=== PATIENT | male | born 1950 | race Caucasian/White ===

== ENCOUNTER 2025-06-29 12:00 | Inpatient (IN) | payer MEDICARE ==
[2025-06-29 12:24] VITALS: BMI 26.2
[2025-07-03] MEDS ORDERED: Thrombin 5000 UNITS/5 ML VIAL ONE (06:12)
[2025-07-03] MEDS ORDERED: Bacitracin Zinc Ointment 30 gm TUBE ONE (06:43)
[2025-07-03] MEDS ORDERED: diphenhydrAMINE 50 MG/ML VIAL IVP PRN (06:48)
[2025-07-03] MEDS ORDERED: HYDROcodone/Acetaminophen 10/325 mg Tablet PO PRN (06:48)
[2025-07-03] MEDS ORDERED: Ondansetron PF 4 MG/2 ML Vial IVP PRN (06:48)
[2025-07-03] MEDS ORDERED: Glucagon 1 MG/ML KIT IM PRN (06:50)
[2025-07-03] MEDS ORDERED: Dextrose 50% Abboject 50 ML SYRINGE SLOW IVP PRN (06:50)
[2025-07-03] MEDS ORDERED: PROPOFOL 20 ML ONE (06:55)
[2025-07-03] MEDS ORDERED: Lidocaine 1% PF 5 ML VIAL ONE (06:55)
[2025-07-03] MEDS ORDERED: Ondansetron PF 4 MG/2 ML Vial ONE (06:55)
[2025-07-03] MEDS ORDERED: Rocuronium Bromide 10 MG/ML (10ML VIAL) ONE (06:55)
[2025-07-03] MEDS ORDERED: CEFAZOLIN 2 GM VIAL ONE (06:58)
[2025-07-03] MEDS ORDERED: SUGAMMADEX SODIUM 200 MG/2 ML VIAL ONE (10:26)
[2025-07-03] MEDS ORDERED: fentaNYL PF 100 MCG/2 ML SYRINGE ONE (12:11)
[2025-07-03] MEDS: Losartan 25 MG TAB PO SCH (13:19)
[2025-07-03] MEDS: Pantoprazole 40 MG DR.TAB PO SCH (13:19)
[2025-07-03] MEDS: Acetaminophen/Codeine 30-300mg Tablet PO PRN (15:48)
[2025-07-04] MEDS: HYDROcodone/Acetaminophen 7.5/325 mg Tablet PO PRN (04:43)
[2025-07-04 05:53] LABS: #Basophils 0.04 10x3/uL (0.0-0.2); #Eosinophils Less than 0.03 10x3/uL (0.0-0.7); #Monocytes 1.37 10x3/uL (0.11-0.59); #Neutrophils 10.55 10x3/uL (1.40-6.50); %Basophils 0.3 % (0.0-1.0); %Eosinophils 0.1 % (0.0-10.0); %Lymphocytes 9.7 % (21.0-51.0); %Monocytes 10.3 % (0.0-10.0); %Neutrophils 78.9 % (42.0-75.0); Hematocrit 37.9 % (42.0-52.0); Hemoglobin 12.2 g/dL (14.0-18.0); Mean Corpuscular Hemoglobin 30.9 pg (27.0-31.0); Mean Corpuscular Volume 95.9 fL (78.0-98.0); Platelet Count 212 10x3/uL (130-400); Red Blood Cell (RBC) Count 3.95 mill/uL (4.70-6.10); White Blood Cell (WBC) Count 13.36 10x3/uL (4.8-10.8)
[2025-07-04 06:14] LABS: Anion Gap 12 mmol/L (10-20); BUN (Urea Nitrogen) 24 mg/dL (8.4-25.7); Calc. Creatinine Clearance 57 mL/min (70-130); Calcium 8.1 mg/dL (7.8-10.44); Carbon Dioxide 24 mmol/L (23-31); Chloride 105 mmol/L (98-107); Glucose 141 mg/dL (83-110); Potassium 4.1 mmol/L (3.5-5.1); Sodium 137 mmol/L (136-145)
[2025-07-04 11:35] VITALS: BP 128/71; TEMP 98.1
== END 2025-07-04 15:57 | disposition home or self-care (01) | DRG 519 ==
LOC: SURG A 07-03 06:05
PROVIDERS: ADMIT Neurological Surgery; ATTEND Neurological Surgery
DX: M48.02 Spinal stenosis, cervical region (principal); G99.2 Myelopathy in diseases classified elsewhere; E11.9 Type 2 diabetes mellitus without complications; M10.9 Gout, unspecified; E78.5 Hyperlipidemia, unspecified; I10 Essential (primary) hypertension; Z79.899 Other long term (current) drug therapy; Z89.022 Acquired absence of left finger(s); Z98.890 Other specified postprocedural states; M48.061 Spinal stenosis, lumbar region without neurogenic claudication; M43.26 Fusion of spine, lumbar region; Z87.442 Personal history of urinary calculi
CPT/HCPCS: 36415; 36416; 80048; 85025; J0169; J0665; J1100; J2405; J2704; J3010; J3373; J7030

== ENCOUNTER 2025-06-29 12:05 | Outpatient (CLI) | payer MEDICARE ==
[2025-06-29 14:05] LABS: #Basophils 0.08 10x3/uL (0.0-0.2); #Eosinophils 0.11 10x3/uL (0.0-0.7); #Monocytes 0.73 10x3/uL (0.11-0.59); #Neutrophils 6.84 10x3/uL (1.40-6.50); %Basophils 0.8 % (0.0-1.0); %Eosinophils 1.1 % (0.0-10.0); %Lymphocytes 19.0 % (21.0-51.0); %Monocytes 7.5 % (0.0-10.0); %Neutrophils 70.5 % (42.0-75.0); Hematocrit 46.5 % (42.0-52.0); Hemoglobin 15.0 g/dL (14.0-18.0); Mean Corpuscular Hemoglobin 30.8 pg (27.0-31.0); Mean Corpuscular Volume 95.5 fL (78.0-98.0); Platelet Count 230 10x3/uL (130-400); Red Blood Cell (RBC) Count 4.87 mill/uL (4.70-6.10); White Blood Cell (WBC) Count 9.72 10x3/uL (4.8-10.8)
[2025-06-29 14:24] LABS: INR-International Normal Ratio 1.0; PTT 32.8 sec (22.9-36.1); Prothrombin Time 13.0 sec (12.0-14.7)
[2025-06-29 14:25] LABS: Anion Gap 15 mmol/L (10-20); BUN (Urea Nitrogen) 23 mg/dL (8.4-25.7); Calc. Creatinine Clearance 0 mL/min (70-130); Calcium 9.2 mg/dL (7.8-10.44); Carbon Dioxide 24 mmol/L (23-31); Chloride 104 mmol/L (98-107); Glucose 108 mg/dL (83-110); Potassium 4.2 mmol/L (3.5-5.1); Sodium 139 mmol/L (136-145)
== END 2025-06-29 12:06 | disposition home or self-care (01) ==
LOC: LABBT 12:05
PROVIDERS: ATTEND Neurological Surgery
DX: Z01.812 Encounter for preprocedural laboratory examination (principal); M47.812 Spondylosis without myelopathy or radiculopathy, cervical region
CPT/HCPCS: 80048; 85025; 85610; 85730